=== PATIENT | male | born 1955 | race Caucasian/White ===

== ENCOUNTER 2017-03-11 10:05 | Observation (INO) | payer BC ==
[~2017-03-11] VITALS: Ht 175.3 cm; Wt 118.0 kg
[2017-03-11 10:31] LABS: HEMATOCRIT 39.4 % (38.0-50.0); MCH 28.6 PG (29.0-34.0); MCHC 32.5 G/DL (30.0-36.0); MCV 87.9 FL (86-99); MEAN PLAT.VOLUME 11.1 uM^3 (9.0-12.4); PLATELET COUNT 208 K/uL (156-360); RBC DIS.WIDTH-CV 14.6 % (11.8-14.6); RBC DIS.WIDTH-SD 46.5 % (39-53); RED BLOOD COUNT 4.48 M/uL (4.00-5.50); WHITE BLOOD COUNT 8.7 K/uL (4.1-10.2)
[2017-03-11 10:42] LABS: CHLORIDE 106 mEq/L (99-109); POTASSIUM 4.2 mEq/L (3.7-5.4); SODIUM 140 mEq/L (136-147)
[2017-03-11 10:43] LABS: GLUCOSE 142 mg/dL (70-99)
[2017-03-11 10:45] LABS: ANION GAP 9 MEQ/L (2-14)
[2017-03-11] MEDS ORDERED: CABERGOLINE0.5 MG PO (10:46)
[2017-03-11 10:47] LABS: GFR ESTIMATE (CALCULATED) > 59 mL/min/
[2017-03-11 10:48] LABS: UREA NITROGEN (BUN) 16 mg/dL (9-23)
[2017-03-11 10:53] LABS: POINT-OF-CARE METER ID UU13113702
[2017-03-11 11:27] LABS: TROP-I INTERPRETATION NEGATIVE; TROPONIN-I < 0.01 ng/mL (0.0-0.30)
[2017-03-11 16:56] VITALS: BP 164/94
[2017-03-11 19:16] VITALS: BP 140/78
[2017-03-11 19:35] LABS: TROP-I INTERPRETATION NEGATIVE; TROPONIN-I < 0.01 ng/mL (0.0-0.30)
[2017-03-12 00:45] VITALS: BP 150/65
[2017-03-12 01:53] LABS: TROP-I INTERPRETATION NEGATIVE; TROPONIN-I < 0.01 ng/mL (0.0-0.30)
[2017-03-12 08:57] VITALS: BP 188/79
[2017-03-12 10:02] VITALS: BP 155/78
[2017-03-12] MEDS ORDERED: ASPIRIN81 M2 PO (10:57)
== END 2017-03-12 11:51 | disposition home or self-care (01) ==
LOC: EME 10:05 → EDOF 12:35 → ENRESERV 12:37 → 5WEST 16:49
PROVIDERS: Emergency Medicine; Internal Medicine
DX: R07.9 Chest pain, unspecified (principal); D35.2 Benign neoplasm of pituitary gland; R94.31 Abnormal electrocardiogram [ECG] [EKG]; I45.2 Bifascicular block; R42 Dizziness and giddiness; R61 Generalized hyperhidrosis; J32.0 Chronic maxillary sinusitis
CPT/HCPCS: 70553; 71020; 80048; 82948; 84443; 84484; 85027; 93005; 93306; 93880; 99281; 99285; G0378; J1650; J7030